=== PATIENT | male | born 1965 | race Caucasian/White ===

== ENCOUNTER 2018-07-24 10:23 | Inpatient (IN) | payer OTHER ==
[2018-07-24 12:04] VITALS: BMI 25.8
--- NOTE | 2018-07-24 12:15 | HP ---
CIWA Score Nausea/Vomitin Muscle Tremors: 2 Anxiety: 2 Agitation: 2 Paroxysmal Sweats: 1-Minimal Palms Moist Orientation: 0-Oriented Tacttile Disturbances: 1-Very Mild Itch/Numbness Auditory Disturbances: 1-Very Mild Visual Disturbances: 0-None Headache: 2-Mild CIWA-Ar Total Score: 13 - Admission Criteria OASAS Guidelines: Admission for Medically Managed Detox: Requires at least one of the followin. CIWA greater than 12 2. Seizures within the past 24 hours 3. Delirium tremens within the past 24 hours 4. Hallucinations within the past 24 hours 5. Acute intervention needed for co occurring medical disorder 6. Acute intervention needed for co occurring psychiatric disorder 7. Severe withdrawal that cannot be handled at a lower level of care (continued vomiting, continued diarrhea, abnormal vital signs) requiring intravenous medication and/or fluids 8. Patient presents the following: CIWA greater than 12 Admission Criteria Met: Admission criteria met Admission ROS BHS - HPI Chief Complaint: i need help to stop drinking alcohol Allergies/Adverse Reactions: Allergies Allergy/AdvReac Type Severity Reaction Status Date / Time No Known Allergies Allergy Verified 07/24/18 12:05 History of Present Illness: this 53 years old male with alcohol dependence,seeking detox,withdrawal symptom, never been in detox treament before frequent fall neuropathy ambulation with walker seizure last 5 days ago fell 2 days ago,head injury,seen at [facility] fx of right shoulder longest period of sobriety 3 years Exam Limitations: No Limitations - Ebola screening Have you traveled outside of the country in the last 21 days: No Have you had contact with anyone from an Ebola affected area: No Have you been sick,other than usual withdrawal symptoms: No Do you have a fever: No - Review of Systems Constitutional: Loss of Appetite, Malaise, Night Sweats, Changes in sleep, Weakness EENT: reports: Tearing, Nose Congestion Respiratory: reports: No Symptoms reported Cardiac: reports: No Symptoms Reported GI: reports: Nausea, Poor Appetite, Abdominal cramping : reports: No Symptoms Reported Musculoskeletal: reports: Back Pain, Muscle Pain Integumentary: reports: Dryness Neuro: reports: Tremors Endocrine: reports: No Symptoms Reported Hematology: reports: No Symptoms Reported Psychiatric: reports: No Sypmtoms Reported, Judgement Intact, Mood/Affect Appropiate, Orientated x3 (anxiety,depression) Patient History - Patient Medical History Hx Anemia: No Hx Asthma: No Hx Chronic Obstructive Pulmonary Disease (COPD): No Hx Cancer: No Hx Cardiac Disorders: No Hx Congestive Heart Failure: No Hx Hypertension: Yes (non compliance) Hx Hypercholesterolemia: No Hx Pacemaker: No HX Cerebrovascular Accident: No Hx Seizures: Yes (last 5 days ago) Hx Dementia: No Hx Diabetes: No Hx Gastrointestinal Disorders: Yes (gerd) Hx Liver Disease: No Hx Genitourinary Disorders: No Hx Sexually Transmitted Disorders: No Hx Renal Disease (ESRD): No Hx Thyroid Disease: No Hx Human Immunodeficiency Virus (HIV): No (last 2016) Hx Hepatitis C: No Hx Depression: Yes (anxiety) Hx Suicide Attempt: No Hx Bipolar Disorder: No Hx Schizophrenia: No Other Medical History: no suicidal,no homicidal,neuropathy ambulation with walker - Patient Surgical History Past Surgical History: No - PPD History Previous Implant?: Yes Documented Results: Negative w/o proof Implanted On Prior [facility] Admission?: No PPD to be Administered?: Yes - Smoking Cessation Smoking history: Current every day smoker Have you smoked in the past 12 months: Yes Aproximately how many cigarettes per day: 10 Cigars Per Day: 0 Hx Chewing Tobacco Use: No Initiated information on smoking cessation: Yes 'Breaking Loose' booklet given: 07/24/18 - Substance & Tx. History Hx Alcohol Use: Yes Hx Substance Use: Yes Substance Use Type: Alcohol Hx Substance Use Treatment: No - Substances Abused Alcohol Route: Oral Frequency: Daily Amount used: 5 25 OZ CANS BEER Age of first use: 12 Date of Last Use: 07/22/18 Family Disease History - Family Disease History Family History: Denies Family Disease History: Other: Father (alcohol,), Mother (alcohol, ), Brother (alcohol,no contact) Admission Physical Exam BHS - Vital Signs Vital Signs: Vital Signs - 24 hr 07/24/18 12:02 Temperature 96.2 F L Pulse Rate 97 H Respiratory 18 Rate Blood Pressure 164/88 - Physical General Appearance: Yes: Moderate Distress, Tremorous, Irritable, Sweating, Anxious HEENTM: Yes: Normal ENT Inspection, GAGANDEEP, Pharynx Normal Respiratory: Yes: Lungs Clear, Normal Breath Sounds, No Respiratory Distress Neck: Yes: Within Normal Limits, Supple, Trachea in good position Breast: Yes: Within Normal Limits Cardiology: Yes: Within Normal Limits, Regular Rhythm, Regular Rate, S1, S2 Abdominal: Yes: Within Normal Limits, Normal Bowel Sounds, Non Tender, Soft Genitourinary: Yes: Within Normal Limits Back: Yes: Muscle Spasm Musculoskeletal: Yes: Back pain, Muscle Pain, Other (scar in lower back) Extremities: Yes: Within Normal Limits, Normal Range of Motion, Tremors, Other ( pain in the right shoulder) Neurological: Yes: clay 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 II-XII NML intact, Alert, Motor Strength 5/5 Integumentary: Yes: Dry, Other (scab formations both knees) Lymphatic: Yes: Within Normal Limits - Diagnostic (1) Alcohol dependence with uncomplicated withdrawal Current Visit: No Status: Acute (2) Alcohol related seizure Current Visit: No Status: Acute (3) Head injury Current Visit: No Status: Acute (4) Frequent falls Current Visit: No Status: Acute (5) Neuropathy Current Visit: No Status: Acute (6) Walker as ambulation aid Current Visit: No Status: Acute (7) Nicotine dependence Current Visit: No Status: Acute (8) Frequent falls Current Visit: No Status: Acute (9) History of back surgery Current Visit: No Status: Acute Cleared for Admission [facility] - Detox or Rehab [facility] Level of Care: Medically Managed Detox Regimen/Protocol: Librium [facility] Breath Alcohol Content Breath Alcohol Content: 0 Urine Drug Screen - Results Drug Screen Negative: No Urine Drug Screen Results: BZO-Benzodiazepines
[2018-07-24] MEDS ORDERED: P-EPHED 60MG/TRIPROLIDI 2.5MG TABLET PO PRN (12:30)
[2018-07-24] MEDS ORDERED: guaiFENesin/D-METHORPHAN HB 10 ML UNIT-DOSE CUPS PO PRN (12:30)
[2018-07-24] MEDS ORDERED: LOPERAMIDE HCL 2 MG CAPSULE PO PRN (12:30)
[2018-07-24] MEDS ORDERED: MAG HYDROX/AL HYDROX/SIMETH 30 ML UNIT-DOSE CUP PO PRN (12:30)
[2018-07-24] MEDS ORDERED: MAGNESIUM CITRATE 300 ML BOTTLE PO PRN (12:30)
[2018-07-24] MEDS ORDERED: MENTHOL/PHENOL 1 EACH UD MM PRN (12:30)
[2018-07-24] MEDS ORDERED: ACETAMINOPHEN 325 MG TABLET (FP) PO PRN (12:30)
[2018-07-24] MEDS ORDERED: chlordiazePOXIDE HCL 25 MG CAPSULE PO PRN (12:30)
[2018-07-24] MEDS ORDERED: IBUPROFEN 400 MG TABLET (FP) PO PRN (12:30)
[2018-07-24] MEDS ORDERED: MAGNESIUM HYDROX 2400MG/30ML ORAL SUSPENSION 30 ML CUP PO PRN (12:30)
[2018-07-24] MEDS: dilTIAZem HCL 30 MG TABLET (FP) PO SCH (15:22)
[2018-07-24] MEDS: chlordiazePOXIDE HCL 25 MG CAPSULE PO SCH ×2 (16:41→22:09)
[2018-07-24] MEDS ORDERED: MELATONIN 5 MG TABLETS PO PRN (22:00)
[2018-07-24] MEDS: levETIRAcetam 500 MG TABLET (FP) PO SCH (22:09)
[2018-07-24] MEDS: THIAMINE HCL 100 MG TABLET (FP) PO SCH (22:09)
[2018-07-25] MEDS: chlordiazePOXIDE HCL 25 MG CAPSULE PO SCH ×4 (06:19→22:34)
[2018-07-25] MEDS: levETIRAcetam 500 MG TABLET (FP) PO SCH ×2 (10:23→22:34)
[2018-07-25] MEDS: dilTIAZem HCL 30 MG TABLET (FP) PO SCH (10:23)
[2018-07-25] MEDS: PRENATAL VITAMINS W/ FOLIC ACID TABLET (FP) PO SCH (10:23)
[2018-07-25 10:32] LABS: HEMATOCRIT 42.4 % (35.4-49); HEMOGLOBIN 13.7 GM/dL (11.7-16.9); MCH 31.4 pg (25.7-33.7); MCHC 32.4 g/dl (32.0-35.9); MEAN PLT VOLUME 10.5 fl (7.5-11.1); PLATELET COUNT 188 K/MM3 (134-434); RBC 4.37 M/mm3 (4.00-5.60); RDW 14.1 % (11.9-15.9); WHITE BLOOD COUNT 8.7 K/mm3 (4.0-10.0)
[2018-07-25 11:05] LABS: ALBUMIN 3.8 g/dl (3.4-5.0); ALK PHOS 169 U/L (45-117); ANION GAP 13 MMOL/L (8-16); BILIRUBIN,TOTAL 0.9 mg/dL (0.2-1); BLOOD UREA NITROGEN 11 mg/dL (7-18); CALCIUM 9.3 mg/dL (8.5-10.1); CHLORIDE 102 mmol/L (98-107); CO2 23 mmol/L (21-32); CREATININE 0.9 mg/dL (0.55-1.3); GLUCOSE,RANDOM 80 mg/dL (74-106); POTASSIUM 4.2 mmol/L (3.5-5.1); SGOT/AST 60 U/L (15-37); SGPT/ALT 36 U/L (13-61); SODIUM 138 mmol/L (136-145); TOT PROT 8.6 g/dl (6.4-8.2)
[2018-07-25] MEDS ORDERED: IBUPROFEN 400 MG TABLET (FP) PO PRN (12:13)
--- NOTE | 2018-07-25 12:13 | PN ---
[facility] CIWA - CIWA Score Nausea/Vomitin-No Nausea/No Vomiting Muscle Tremors: 3 Anxiety: 3 Agitation: 3 Paroxysmal Sweats: 3 Orientation: 0-Oriented Tacttile Disturbances: 0-None Auditory Disturbances: 0-None Visual Disturbances: 0-None Headache: 0-None Present CIWA-Ar Total Score: 12 S Progress Note (SOAP) Subjective: low back pain sweats interrupted sleep agitation Objective: 07/25/18 12:12 Vital Signs Temperature 97.8 F 07/25/18 09:11 Pulse Rate 88 07/25/18 09:11 Respiratory Rate 18 07/25/18 09:11 Blood Pressure 129/99 07/25/18 09:11 O2 Sat by Pulse Oximetry (%) Laboratory Tests 07/25/18 07/25/18 07/25/18 06:00 06:00 06:00 WBC 8.7 RBC 4.37 Hgb 13.7 Hct 42.4 MCV 97.0 H MCH 31.4 MCHC 32.4 RDW 14.1 Plt Count 188 MPV 10.5 Sodium 138 Potassium 4.2 Chloride 102 Carbon Dioxide 23 Anion Gap 13 BUN 11 Creatinine 0.9 Creat Clearance w eGFR > 60 Random Glucose 80 Calcium 9.3 Total Bilirubin 0.9 AST 60 H ALT 36 Alkaline Phosphatase 169 H Total Protein 8.6 H Albumin 3.8 RPR Titer Nonreactive aaox3 ambulating no acute distress Assessment: 07/25/18 12:12 withdrawal sx Plan: continue detox increase fluids lidocaine patch ordered motrin 800mg tid prn
--- NOTE | 2018-07-25 12:52 | EKG ---
Test Reason : Blood Pressure : / mmHG Vent. Rate : 080 BPM Atrial Rate : 080 BPM P-R Int : 152 ms QRS Dur : 086 ms QT Int : 388 ms P-R-T Axes : 076 050 037 degrees QTc Int : 447 ms NORMAL SINUS RHYTHM NORMAL ECG NO PREVIOUS ECGS AVAILABLE Confirmed by YEMI HINOJOSA MD ([id number]) on 07/25/2018 12:51:37 PM Referred By: Confirmed By:YEMI HINOJOSA MD
[2018-07-25] MEDS ORDERED: LIDOCAINE 5% TOPICAL PATCH TP ONE (13:00)
[2018-07-25 19:07] LABS: URINE APPEARANCE CLEAR; URINE BILIRUBIN NEGATIVE (<2.0 mg/dL); URINE COLOR YELLOW; URINE GLUCOSE (UA) NEGATIVE (NEGATIVE); URINE KETONE NEGATIVE (NEGATIVE); URINE LEUK ESTERASE NEGATIVE (NEGATIVE); URINE NITRITE NEGATIVE (NEGATIVE); URINE PROTEIN 2+ (NEGATIVE); URINE UROBILINOGEN NEGATIVE mg/dL (0.2-1.0)
[2018-07-25 19:13] LABS: EPI CELLS RARE /HPF (FEW)
[2018-07-25] MEDS: THIAMINE HCL 100 MG TABLET (FP) PO SCH (22:34)
[2018-07-25] MEDS: LIDOCAINE PATCH REMOVAL MC SCH (22:35)
[2018-07-26] MEDS: chlordiazePOXIDE HCL 25 MG CAPSULE PO SCH ×2 (05:56→10:19)
[2018-07-26] MEDS: levETIRAcetam 500 MG TABLET (FP) PO SCH ×2 (10:19→22:14)
[2018-07-26] MEDS: dilTIAZem HCL 30 MG TABLET (FP) PO SCH (10:19)
[2018-07-26] MEDS: PRENATAL VITAMINS W/ FOLIC ACID TABLET (FP) PO SCH (10:19)
[2018-07-26] MEDS: LIDOCAINE 5% TOPICAL PATCH TP SCH (10:19)
--- NOTE | 2018-07-26 11:59 | PN ---
[facility] CIWA - CIWA Score Nausea/Vomitin-Mild Nausea/No Vomiting Muscle Tremors: 2 Anxiety: 2 Agitation: 2 Paroxysmal Sweats: 3 Orientation: 0-Oriented Tacttile Disturbances: 2-Mild Itch/Numbness/Burn Auditory Disturbances: 0-None Visual Disturbances: 0-None Headache: 0-None Present CIWA-Ar Total Score: 12 S Progress Note (SOAP) Subjective: intyerrupted sleep, sweats, low back pain , decreased appetite Objective: 07/26/18 11:57 Vital Signs Temperature 97.9 F 07/26/18 09:55 Pulse Rate 95 H 07/26/18 09:55 Respiratory Rate 16 07/26/18 09:55 Blood Pressure 140/90 07/26/18 09:55 O2 Sat by Pulse Oximetry (%) Laboratory Tests 07/24/18 07/25/18 07/25/18 23:00 06:00 06:00 WBC 8.7 RBC 4.37 Hgb 13.7 Hct 42.4 MCV 97.0 H MCH 31.4 MCHC 32.4 RDW 14.1 Plt Count 188 MPV 10.5 Sodium 138 Potassium 4.2 Chloride 102 Carbon Dioxide 23 Anion Gap 13 BUN 11 Creatinine 0.9 Creat Clearance w eGFR > 60 Random Glucose 80 Calcium 9.3 Total Bilirubin 0.9 AST 60 H ALT 36 Alkaline Phosphatase 169 H Total Protein 8.6 H Albumin 3.8 Urine Color Yellow Urine Appearance Clear Urine pH 7.0 Ur Specific [place] 1.016 Urine Protein 2+ H Urine Glucose (UA) Negative Urine Ketones Negative Urine Blood Negative Urine Nitrite Negative Urine Bilirubin Negative Urine Urobilinogen Negative Ur Leukocyte Esterase Negative Urine WBC (Auto) 5 Urine RBC (Auto) 1 Ur Epithelial Cells Rare RPR Titer 07/25/18 06:00 WBC RBC Hgb Hct MCV MCH MCHC RDW Plt Count MPV Sodium Potassium Chloride Carbon Dioxide Anion Gap BUN Creatinine Creat Clearance w eGFR Random Glucose Calcium Total Bilirubin AST ALT Alkaline Phosphatase Total Protein Albumin Urine Color Urine Appearance Urine pH Ur Specific [place] Urine Protein Urine Glucose (UA) Urine Ketones Urine Blood Urine Nitrite Urine Bilirubin Urine Urobilinogen Ur Leukocyte Esterase Urine WBC (Auto) Urine RBC (Auto) Ur Epithelial Cells RPR Titer Nonreactive pt aox3 in nad lying in bed Assessment: 07/26/18 11:58 withdrawal sx's 12/14/18 11:58 lbp Plan: cont. detox increase fluids cont lidocaine patch ensure bid
[2018-07-26] MEDS: chlordiazePOXIDE 5 MG CAPSULE PO SCH ×2 (21:12→22:13)
[2018-07-26] MEDS: hydrOXYzine PAMOATE 25 MG CAPSULE (FP) PO PRN (22:13)
[2018-07-26] MEDS: LIDOCAINE PATCH REMOVAL MC SCH (22:14)
[2018-07-26] MEDS: THIAMINE HCL 100 MG TABLET (FP) PO SCH (22:14)
[2018-07-27] MEDS: chlordiazePOXIDE 5 MG CAPSULE PO SCH ×2 (06:22→10:25)
[2018-07-27] MEDS: levETIRAcetam 500 MG TABLET (FP) PO SCH ×2 (10:25→22:27)
[2018-07-27] MEDS: PRENATAL VITAMINS W/ FOLIC ACID TABLET (FP) PO SCH (10:25)
[2018-07-27] MEDS: dilTIAZem HCL 30 MG TABLET (FP) PO SCH (10:25)
[2018-07-27] MEDS: LIDOCAINE 5% TOPICAL PATCH TP SCH (10:25)
--- NOTE | 2018-07-27 14:27 | PN ---
BHS Progress Note (SOAP) Subjective: pt c/o feeling tired. But otherwise OK O: Vital Signs - 24 hr 07/26/18 07/26/18 07/26/18 14:30 18:37 22:10 Temperature 97.0 F L 97.0 F L 98.2 F Pulse Rate 91 H 69 85 Respiratory 20 18 18 Rate Blood Pressure 132/87 137/86 143/93 07/27/18 07/27/18 07/27/18 00:30 03:30 06:54 Temperature Pulse Rate 73 Respiratory 18 18 18 Rate Blood Pressure 150/99 07/27/18 07/27/18 09:46 14:20 Temperature 98.1 F 98.5 F Pulse Rate 109 H 87 Respiratory 18 18 Rate Blood Pressure 140/98 140/94 Laboratory Tests 07/24/18 07/25/18 07/25/18 23:00 06:00 06:00 WBC 8.7 RBC 4.37 Hgb 13.7 Hct 42.4 MCV 97.0 H MCH 31.4 MCHC 32.4 RDW 14.1 Plt Count 188 MPV 10.5 Sodium 138 Potassium 4.2 Chloride 102 Carbon Dioxide 23 Anion Gap 13 BUN 11 Creatinine 0.9 Creat Clearance w eGFR > 60 Random Glucose 80 Calcium 9.3 Total Bilirubin 0.9 AST 60 H ALT 36 Alkaline Phosphatase 169 H Total Protein 8.6 H Albumin 3.8 Urine Color Yellow Urine Appearance Clear Urine pH 7.0 Ur Specific [place] 1.016 Urine Protein 2+ H Urine Glucose (UA) Negative Urine Ketones Negative Urine Blood Negative Urine Nitrite Negative Urine Bilirubin Negative Urine Urobilinogen Negative Ur Leukocyte Esterase Negative Urine WBC (Auto) 5 Urine RBC (Auto) 1 Ur Epithelial Cells Rare RPR Titer 07/25/18 06:00 WBC RBC Hgb Hct MCV MCH MCHC RDW Plt Count MPV Sodium Potassium Chloride Carbon Dioxide Anion Gap BUN Creatinine Creat Clearance w eGFR Random Glucose Calcium Total Bilirubin AST ALT Alkaline Phosphatase Total Protein Albumin Urine Color Urine Appearance Urine pH Ur Specific Eck[place] Urine Protein Urine Glucose (UA) Urine Ketones Urine Blood Urine Nitrite Urine Bilirubin Urine Urobilinogen Ur Leukocyte Esterase Urine WBC (Auto) Urine RBC (Auto) Ur Epithelial Cells RPR Titer Nonreactive a/p:AUD- continue alcohol detox protocol
[2018-07-27] MEDS: chlordiazePOXIDE HCL 10 MG CAPSULE PO SCH ×2 (20:56→22:27)
[2018-07-27] MEDS: LIDOCAINE PATCH REMOVAL MC SCH (22:27)
[2018-07-27] MEDS: THIAMINE HCL 100 MG TABLET (FP) PO SCH (22:27)
[2018-07-27] MEDS: hydrOXYzine PAMOATE 25 MG CAPSULE (FP) PO PRN (22:27)
[2018-07-28] MEDS: chlordiazePOXIDE HCL 10 MG CAPSULE PO SCH ×2 (06:17→10:16)
--- NOTE | 2018-07-28 09:48 | PN ---
S Progress Note (SOAP) Subjective: 53 years old male admitted on 07/24/18 for alcohol withdrawal stability history of seizure neuropathy stated that he is feeling weak, tremor, and stomach cramping Objective: 07/28/18 09:49 Vital Signs Temperature 97 F L 07/28/18 04:00 Pulse Rate 66 07/28/18 04:00 Respiratory Rate 18 07/28/18 04:00 Blood Pressure 140/97 07/28/18 04:00 O2 Sat by Pulse Oximetry (%) Laboratory Last Values WBC 8.7 K/mm3 (4.0-10.0) 07/25/18 06:00 RBC 4.37 M/mm3 (4.00-5.60) 07/25/18 06:00 Hgb 13.7 GM/dL (11.7-16.9) 07/25/18 06:00 Hct 42.4 % (35.4-49) 07/25/18 06:00 MCV 97.0 fl (80-96) H 07/25/18 06:00 MCH 31.4 pg (25.7-33.7) 07/25/18 06:00 MCHC 32.4 g/dl (32.0-35.9) 07/25/18 06:00 RDW 14.1 % (11.9-15.9) 07/25/18 06:00 Plt Count 188 K/MM3 (134-434) 07/25/18 06:00 MPV 10.5 fl (7.5-11.1) 07/25/18 06:00 Sodium 138 mmol/L (136-145) 07/25/18 06:00 Potassium 4.2 mmol/L (3.5-5.1) 07/25/18 06:00 Chloride 102 mmol/L (98-107) 07/25/18 06:00 Carbon Dioxide 23 mmol/L (21-32) 07/25/18 06:00 Anion Gap 13 MMOL/L (8-16) 07/25/18 06:00 BUN 11 mg/dL (7-18) 07/25/18 06:00 Creatinine 0.9 mg/dL (0.55-1.3) 07/25/18 06:00 Creat Clearance w eGFR > 60 (>60) 07/25/18 06:00 Random Glucose 80 mg/dL (74-106) 07/25/18 06:00 Calcium 9.3 mg/dL (8.5-10.1) 07/25/18 06:00 Total Bilirubin 0.9 mg/dL (0.2-1) 07/25/18 06:00 AST 60 U/L (15-37) H 07/25/18 06:00 ALT 36 U/L (13-61) 07/25/18 06:00 Alkaline Phosphatase 169 U/L (45-117) H 07/25/18 06:00 Total Protein 8.6 g/dl (6.4-8.2) H 07/25/18 06:00 Albumin 3.8 g/dl (3.4-5.0) 07/25/18 06:00 Urine Color Yellow 07/24/18 23:00 Urine Appearance Clear 07/24/18 23:00 Urine pH 7.0 (5.0-8.0) 07/24/18 23:00 Ur Specific [place] 1.016 (1.010-1.035) 07/24/18 23:00 Urine Protein 2+ (NEGATIVE) H 07/24/18 23:00 Urine Glucose (UA) Negative (NEGATIVE) 07/24/18 23:00 Urine Ketones Negative (NEGATIVE) 07/24/18 23:00 Urine Blood Negative (NEGATIVE) 07/24/18 23:00 Urine Nitrite Negative (NEGATIVE) 07/24/18 23:00 Urine Bilirubin Negative (<2.0 mg/dL) 07/24/18 23:00 Urine Urobilinogen Negative mg/dL (0.2-1.0) 07/24/18 23:00 Ur Leukocyte Esterase Negative (NEGATIVE) 07/24/18 23:00 Urine WBC (Auto) 5 /hpf (3-5) 07/24/18 23:00 Urine RBC (Auto) 1 /hpf (0-3) 07/24/18 23:00 Ur Epithelial Cells Rare /HPF (FEW) 07/24/18 23:00 RPR Titer Nonreactive (NONREACTIVE) 07/25/18 06:00 lab noted Assessment: 07/28/18 09:50 mild alcohol withdrawal as listed above seizure Plan: medically supervised detox continue john
[2018-07-28] MEDS: dilTIAZem HCL 30 MG TABLET (FP) PO SCH (10:16)
[2018-07-28] MEDS: LIDOCAINE 5% TOPICAL PATCH TP SCH (10:16)
[2018-07-28] MEDS: levETIRAcetam 500 MG TABLET (FP) PO SCH ×2 (10:16→22:16)
[2018-07-28] MEDS: PRENATAL VITAMINS W/ FOLIC ACID TABLET (FP) PO SCH (10:16)
[2018-07-28] MEDS: THIAMINE HCL 100 MG TABLET (FP) PO SCH (22:16)
[2018-07-28] MEDS: hydrOXYzine PAMOATE 25 MG CAPSULE (FP) PO PRN (22:16)
[2018-07-28] MEDS: LIDOCAINE PATCH REMOVAL MC SCH (22:55)
--- NOTE | 2018-07-29 08:59 | DS ---
[facility] Detox Discharge Summary Admission Date: 07/24/18 Discharge Date: 07/29/18 - History Present History: Alcohol Dependence - Physical Exam Results Vital Signs: Vital Signs Temperature 97.3 F L 07/29/18 06:44 Pulse Rate 70 07/29/18 06:44 Respiratory Rate 18 07/29/18 06:44 Blood Pressure 149/86 07/29/18 06:44 O2 Sat by Pulse Oximetry (%) - Treatment Hospital Course: Detox Protocol Followed, Detoxed Safely, Responded well, Discharged Condition Good, Rehab Referral Accepted - Medication Discharge Medications: Ambulatory Orders Baclofen [Lioresal -] 10 mg PO DAILY 07/24/18 Citalopram Hydrobromide [Celexa -] 20 mg PO DAILY 07/24/18 Duloxetine HCl [Cymbalta -] 30 mg PO DAILY 07/24/18 traZODone HCL [Trazodone HCl] 100 mg PO HS 07/24/18 Diltiazem [Cardizem -] 30 mg PO DAILY #30 tablet 07/28/18 Gabapentin [Neurontin] 600 mg PO TID #90 tablet 07/28/18 levETIRAcetam [Keppra -] 500 mg PO BID #60 tablet 07/28/18 - Diagnosis (1) Alcohol dependence with uncomplicated withdrawal Current Visit: Yes Status: Chronic (2) Alcohol related seizure Current Visit: No Status: Acute (3) Frequent falls Current Visit: No Status: Acute (4) Frequent falls Current Visit: No Status: Acute (5) Head injury Current Visit: No Status: Acute (6) History of back surgery Current Visit: No Status: Chronic (7) Neuropathy Current Visit: Yes Status: Chronic (8) Nicotine dependence Current Visit: Yes Status: Chronic Qualifiers: Nicotine product type: cigarettes Substance use status: uncomplicated Qualified Code(s): F17.210 - Nicotine dependence, cigarettes, uncomplicated (9) Walker as ambulation aid Current Visit: Yes Status: Chronic - AMA Did Patient Leave Against Medical Advice: No ([facility])
[2018-07-29 09:03] VITALS: BP 131/81; PULSE 72; TEMP 97.5
[2018-07-29] MEDS: PRENATAL VITAMINS W/ FOLIC ACID TABLET (FP) PO SCH (10:06)
[2018-07-29] MEDS: LIDOCAINE 5% TOPICAL PATCH TP SCH (10:06)
[2018-07-29] MEDS: dilTIAZem HCL 30 MG TABLET (FP) PO SCH (10:06)
[2018-07-29] MEDS: levETIRAcetam 500 MG TABLET (FP) PO SCH (10:06)
== END 2018-07-29 12:45 | disposition other institution (70) | DRG 775 ==
LOC: YASAS 10:23 → Y6N 12:26
PROC: HZ2ZZZZ Detoxification Services for Substance Abuse Treatment (ICD-10-PCS; principal; 2018-07-24)
DX: F10.230 Alcohol dependence with withdrawal, uncomplicated (principal); F17.210 Nicotine dependence, cigarettes, uncomplicated; I10 Essential (primary) hypertension; G62.9 Polyneuropathy, unspecified; R03.0 Elevated blood-pressure reading, without diagnosis of hypertension; G40.909 Epilepsy, unspecified, not intractable, without status epilepticus; K21.9 Gastro-esophageal reflux disease without esophagitis; S09.90XD Unspecified injury of head, subsequent encounter; X58.XXXD Exposure to other specified factors, subsequent encounter; R29.6 Repeated falls; Z99.89 Dependence on other enabling machines and devices; Z91.14 Patient's other noncompliance with medication regimen; Z59.0 Homelessness
CPT/HCPCS: 36415; 71045-TC-FY; 80053; 81003; 81015; 85027; 86593; 93005; 93010

== ENCOUNTER 2018-07-29 13:17 | Inpatient (IN) | payer OTHER ==
--- NOTE | 2018-07-29 13:33 | HP ---
[facility] Rehab Assess/Revision - Admission History Admitted to Rehab from: [facility] - Findings Detox History & Physical reviewed: Yes Concur with findings: Yes
[2018-07-29] MEDS ORDERED: ACETAMINOPHEN 325 MG TABLET (FP) PO PRN (13:34)
[2018-07-29] MEDS ORDERED: guaiFENesin/D-METHORPHAN HB 10 ML UNIT-DOSE CUPS PO PRN (13:34)
[2018-07-29] MEDS ORDERED: MAG HYDROX/AL HYDROX/SIMETH 30 ML UNIT-DOSE CUP PO PRN (13:34)
[2018-07-29] MEDS ORDERED: IBUPROFEN 400 MG TABLET (FP) PO PRN (13:34)
[2018-07-29] MEDS ORDERED: hydrOXYzine PAMOATE 50 MG CAPSULE (FP) PO PRN (13:34)
[2018-07-29] MEDS ORDERED: MAGNESIUM HYDROX 2400MG/30ML ORAL SUSPENSION 30 ML CUP PO PRN (13:34)
[2018-07-29] MEDS ORDERED: P-EPHED 60MG/TRIPROLIDI 2.5MG TABLET PO PRN (13:34)
[2018-07-29] MEDS ORDERED: MAGNESIUM CITRATE 300 ML BOTTLE PO PRN (13:34)
[2018-07-29] MEDS ORDERED: LOPERAMIDE HCL 2 MG CAPSULE PO PRN (13:34)
[2018-07-29] MEDS ORDERED: NICOTINE POLACRILEX 4 MG GUM BUC PRN (13:34)
[2018-07-29] MEDS ORDERED: MENTHOL/PHENOL 1 EACH UD MM PRN (13:34)
--- NOTE | 2018-07-29 13:34 | HP ---
Inpatient Rehab Admission - Initial Determination Are CD services needed?: Yes Free of communicable disease: Yes Not in need of hospitalization: Yes - Rehab Admission Criteria Previous failed treatment: Yes Comorbidities: Yes Lacks judgement: Yes
--- NOTE | 2018-07-29 14:10 | HP ---
Psychiatrist Admission - Data Date of interview: 07/29/18 Admission source: [address] [place] [address] detox Identifying data: This is the first admission to [address] [place] [address] for this 53 yo single childless,homeless male, supported by [facility]. Medical History: H/O laminectomy last year,HTN,Head traume ,Alchol related seizures. Psychiatric History: patient reports having depressed mood after he lost his brother in 2013 (he hang himself while he was under influence).[facility],he was dx with PTSD.Reports no history of psychiatric hospitalizations,no suicidal attempts .Patient was on Celexa 20 mg po daily and Trazodone 100 mg po hs.Patient stopped to see a psychiatrist about 1 year ago.He restarted his medications while being admitted to medical floor a few months ago,but then stopped it again..Patient is still c/o insomnia and is willing to restart Trazodone 100 mg po hs and Celexa 20 mg po daily. Physical/Sexual Abuse/Trauma History: denies history of sexual/physical abuse Allergies/Adverse Reactions: Allergies Allergy/AdvReac Type Severity Reaction Status Date / Time No Known Allergies Allergy Verified 07/24/18 12:05 Concur with the findings of this exam: Yes - Substance Abuse/Tx History Hx Alcohol Use: Yes (drinking since 12 yo,heavy drinker since about 6 yo) Hx Substance Use: No Substance Use Type: Alcohol Hx Substance Use Treatment: Yes (longest abstinence about 2 years ) Mental Status Exam - Mental Status Exam Alert and Oriented to: Time, Place, Person Cognitive Function: Grossly Intact Patient Appearance: Unkempt Mood: Sad, Anxious Affect: Mood Congruent, Labile Patient Behavior: Cooperative Speech Pattern: Clear Voice Loudness: Normal Thought Process: Goal Oriented Thought Disorder: Not Present Hallucinations: Denies Suicidal Ideation: Denies Homicidal Ideation: Denies Insight/Judgement: Fair Sleep: Fair Appetite: Fair Muscle strength/Tone: Normal Gait/Station: Normal Psychiatric Findings - Problem List ([place] 1, 2,3) (1) Head injury Current Visit: Yes Status: Chronic (2) Seizure Current Visit: Yes Status: Chronic (3) History of back surgery Current Visit: Yes Status: Chronic (4) Neuropathy Current Visit: Yes Status: Chronic (5) Alcohol dependence Current Visit: Yes Status: Chronic (6) Nicotine dependence Current Visit: Yes Status: Chronic Qualifiers: (7) Walker as ambulation aid Current Visit: Yes Status: Chronic (8) PTSD (post-traumatic stress disorder) Current Visit: Yes Status: Chronic - Initial Treatment Plan Initial Treatment Plan: Celexa 20 mg po daily and Trazodone 100 mg po hs. will monitor progress.
[2018-07-29 14:21] VITALS: BP 120/82; PULSE 79; TEMP 98.1
[2018-07-29] MEDS ORDERED: CITALOPRAM HYDROBROMIDE 20 MG TABLET (FP) PO SCH (14:45)
[2018-07-29] MEDS ORDERED: THIAMINE HCL 100 MG TABLET (FP) PO SCH (22:00)
[2018-07-29] MEDS ORDERED: MELATONIN 5 MG TABLETS PO PRN (22:00)
[2018-07-29] MEDS ORDERED: traZODone HCL 100 MG TABLET (FP) PO SCH (22:00)
[2018-07-29] MEDS ORDERED: levETIRAcetam 500 MG TABLET (FP) PO SCH (22:00)
[2018-07-29] MEDS ORDERED: LIDOCAINE PATCH REMOVAL MC SCH (22:00)
[2018-07-30] MEDS ORDERED: LIDOCAINE 5% TOPICAL PATCH TP SCH (10:00)
[2018-07-30] MEDS ORDERED: PRENATAL VITAMINS W/ FOLIC ACID TABLET (FP) PO SCH (10:00)
[2018-07-30] MEDS ORDERED: dilTIAZem HCL 30 MG TABLET (FP) PO SCH (10:00)
[2018-07-30] MEDS ORDERED: BACLOFEN 10 MG TABLET (FP) PO SCH (10:00)
[2018-07-30] MEDS ORDERED: NICOTINE 21 MG/24 HOURS TOPICAL PATCH TD SCH (10:00)
[2018-07-30] MEDS ORDERED: LIDOCAINE TP SCH (10:00)
== END 2018-07-29 15:56 | disposition left against medical advice (07) | DRG 770 ==
LOC: YASAS 13:17 → Y5N 13:18
PROVIDERS: ADMIT Psychiatry & Neurology Psychiatry; ATTEND Psychiatry & Neurology Psychiatry
PROC: HZ40ZZZ Group Counseling for Substance Abuse Treatment, Cognitive (ICD-10-PCS; principal; 2018-07-29)
DX: F10.20 Alcohol dependence, uncomplicated (principal); F17.210 Nicotine dependence, cigarettes, uncomplicated; F43.10 Post-traumatic stress disorder, unspecified; I10 Essential (primary) hypertension; G62.9 Polyneuropathy, unspecified; G40.909 Epilepsy, unspecified, not intractable, without status epilepticus; S09.90XD Unspecified injury of head, subsequent encounter; X58.XXXD Exposure to other specified factors, subsequent encounter; R29.2 Abnormal reflex; Z99.89 Dependence on other enabling machines and devices; Z59.0 Homelessness